=== PATIENT | female | born 1975 | race Caucasian/White ===

== ENCOUNTER 2024-08-20 23:39 | Emergency (ER) | payer SELFPAY ==
[~2024-08-20] VITALS: Ht 167.6 cm; Wt 78.0 kg
[2024-08-20 23:56] VITALS: BP 105/68; PULSE 80; RESP 14; TEMP 36.7; O2SAT 99
== END 2024-08-21 05:18 | disposition home or self-care (01) ==
LOC: ER 23:39
DX: F10.129 Alcohol abuse with intoxication, unspecified (principal); Y90.9 Presence of alcohol in blood, level not specified
CPT/HCPCS: 99283